=== PATIENT | female | born 1985 | race Caucasian/White ===

== ENCOUNTER 2016-04-30 14:04 | Emergency (ER) | payer OTHER ==
[~2016-04-30] VITALS: Ht 177.8 cm; Wt 61.2 kg
--- NOTE | 2016-04-30 14:04 | NUR ---
Placed in room 4 . Placed on clinical research monitor, blood pressure machine and pulse oximeter. To gown for exam. Side rails up.
[2016-04-30 14:06] VITALS: BP 111/78; PULSE 74; RESP 18; TEMP 98.1; O2SAT 99
--- NOTE | 2016-04-30 14:14 | NUR ---
BIB BLS,sudden onset of anxiety while was driving on the free [address]. pt A&O x 4.appears anxious,tingling numbness to both hands.no acute distress noted.
--- NOTE | 2016-04-30 14:18 | NUR ---
ER at bedside examining patient.
[2016-04-30] MEDS ORDERED: ALPRAZolam 0.25 MG TABLET PO ONE (14:30)
[2016-04-30 14:34] VITALS: BP 120/70; PULSE 86; RESP 18; TEMP 98.2; O2SAT 99
--- NOTE | 2016-04-30 14:36 | NUR ---
Patient given written and verbal discharge instructions and verbalizes understanding. ER MD discussed with patient the results and treatment provided. Patient in stable condition. ID arm band removed. Rx of xanax given. Patient educated on pain management and to follow up with PMD. Pain Scale []. Opportunity for questions provided and answered.
== END 2016-04-30 14:36 | disposition home or self-care (01) ==
LOC: SED 14:04
DX: F41.9 Anxiety disorder, unspecified (principal)
CPT/HCPCS: 99283